=== PATIENT | female | born 1965 | race African-American/Black ===

== ENCOUNTER 2019-01-14 20:17 | Emergency (ER) | payer MEDICAID ==
[~2019-01-14] VITALS: Ht 152.4 cm; Wt 44.1 kg
[2019-01-14 20:40] VITALS: Ht 152.4 cm; Wt 44.1 kg
[2019-01-14] MEDS ORDERED: NORVASC5 MG PO (20:41)
[2019-01-14] MEDS ORDERED: ERYTHROMYCIN OPT1 GM LEFT EYE (21:58)
[2019-01-14 22:09] VITALS: BP 132/72
== END 2019-01-14 22:09 | disposition home or self-care (01) ==
LOC: D.ER 20:17
DX: H00.14 Chalazion left upper eyelid (principal)